=== PATIENT | male | born 1960 | race Caucasian/White ===

== ENCOUNTER 2022-03-22 08:45 | Outpatient (CLI) | payer BC, SELFPAY | END 2022-03-22 08:46 | disposition home or self-care (01) | LOC: WOUND 08:51 | PROVIDERS: Visit Provider Nurse Practitioner Family | DX: T22.211A Burn of second degree of right forearm, initial encounter (principal); T22.212A Burn of second degree of left forearm, initial encounter; T20.212A Burn of second degree of left ear [any part, except ear drum], initial encounter | CPT/HCPCS: 16020; 99204; 99214 ==